=== PATIENT | female | born 1970 | race Caucasian/White ===

== ENCOUNTER 2019-04-29 21:21 | Inpatient (IN) | payer MEDICAID ==
[2019-04-29] MEDS: ACETAMINOPHEN 325 MG TAB PO (21:44)
[2019-04-29] MEDS: SODIUM CHLORIDE 0.9% 1L BAG IV* (21:45)
[2019-04-29] MEDS: AZTREONAM 1 GM/NS (PMX) 50 ML IVPB (21:52)
[2019-04-29 22:02] LABS: ABNORMAL IP MESSAGE 1; HEMATOCRIT 34.7 % (37.0-47.0); HEMOGLOBIN 10.9 g/dl (12.0-16.0); MEAN CORPUSCULAR HEMOGLOBIN 24.2 pg (29.0-33.0); MEAN CORPUSCULAR HGB CONC 31.4 g/dl (32.0-37.0); MEAN CORPUSCULAR VOLUME 76.9 fl (82.0-101.0); PLATELET COUNT 340 10^3/UL (140-415); RED BLOOD COUNT 4.51 10^6/ul (4.20-5.40); RED CELL DISTRIBUTION WIDTH 16.9 % (11.5-14.5)
[2019-04-29 22:02] LABS: WHITE BLOOD COUNT 23.3 10^3/ul (4.8-10.8)
[2019-04-29 22:05] LABS: ADD UMIC YES; UR ASCORBIC ACID NEGATIVE (NEGATIVE); UR BILIRUBIN (Dip) NEGATIVE (NEGATIVE); UR BLOOD (Dip) NEGATIVE (NEGATIVE); UR CLARITY CLEAR (CLEAR); UR COLOR YELLOW (YELLOW); UR GLUCOSE (Dip) NEGATIVE (NEGATIVE); UR KETONES (Dip) NEGATIVE (NEGATIVE); UR LEUKOCYTE ESTERASE (Dip) TRACE Leu/ul (NEGATIVE); UR NITRITE (Dip) NEGATIVE (NEGATIVE); UR RBC 2 /HPF (0-5); UR SPECIFIC GRAVITY (Dip) 1.013 (1.003-1.030); UR TOTAL PROTEIN (Dip) NEGATIVE (NEGATIVE); UR UROBILINOGEN (Dip) NEGATIVE (NEGATIVE); UR WBC 1 /HPF (0-5)
[2019-04-29 22:07] LABS: ADD MAN DIFF? YES; POSITIVE DIFF @See below
[2019-04-29] MEDS: VANCOMYCIN 1 GM (PMX) 250 ML IVPB (22:11)
[2019-04-29 22:21] LABS: INR 0.97
[2019-04-29 22:22] LABS: PARTIAL THROMBOPLASTIN TIME 27.1 Sec (23.0-35.0)
[2019-04-29 22:25] LABS: ALANINE AMINOTRANSFERASE 45 IU/L (13-69); ALBUMIN 4.7 g/dl (3.3-4.9); ALBUMIN/GLOBULIN RATIO 1.17; ALKALINE PHOSPHATASE 66 IU/L (42-121); ANION GAP 15 (5-13); ASPARTATE AMINO TRANSFERASE 41 IU/L (15-46); BILIRUBIN,INDIRECT 1.6 mg/dl (0-1.1); BILIRUBIN,TOTAL 1.6 mg/dl (0.2-1.3); BLOOD UREA NITROGEN 13 mg/dl (7-20); CARBON DIOXIDE 24 mmol/L (21-31); CHLORIDE 98 mmol/L (97-110); CREATININE 0.82 mg/dl (0.44-1.00); Estimated GFR > 60 mL/min (>60); GLUCOSE 197 mg/dl (70-220); LIPASE 65 U/L (23-300); POTASSIUM 3.6 mmol/L (3.5-5.1); SODIUM 137 mmol/L (135-144); TOTAL PROTEIN 8.7 g/dl (6.1-8.1)
[2019-04-29 22:37] LABS: TROPONIN-I < 0.012 ng/ml (0.000-0.120)
[2019-04-29 22:46] LABS: ANISOCYTOSIS 1+ (0-0); BAND NEUTROPHILS #M 2.7 10^3/ul (0.0-0.6); BAND NEUTROPHILS % (M) 12 % (0-4); EOSINOPHILS % (M) 1 % (0-7); HYPOCHROMASIA 1+ (0-0); LYMPHOCYTES #M 0.2 10^3/ul (0.8-2.9); LYMPHOCYTES % (M) 1 % (15-51); MICROCYTOSIS 1+ (0-0); MONOCYTES % (M) 9 % (0-11); PLATELET ESTIMATE NORMAL; POIKILOCYTOSIS 1+ (0-0); POLYCHROMASIA 1+ (0-0); SEG NEUT #M 18.6 10^3/ul (1.6-7.5); SEGMENTED NEUTROPHILS (M) % 77 % (39-77); SMUDGE%M 1 % (0-0)
[2019-04-30] MEDS ORDERED: DOCUSATE SODIUM 100 MG CAP PO
[2019-04-30] MEDS ORDERED: ACETAMINOPHEN 325 MG TAB PO
[2019-04-30] MEDS ORDERED: ONDANSETRON 4 MG INJ IV
[2019-04-30] MEDS ORDERED: morphine 2 MG INJ IV
[2019-04-30] MEDS ORDERED: BISACODYL (EC) 5 MG TAB PO
[2019-04-30] MEDS ORDERED: NACL 0.9% 3 ML SYG IV
[2019-04-30 00:06] LABS: LACTIC ACID 3.7 mmol/L (0.5-2.0)
[2019-04-30] MEDS ORDERED: VANCOMYCIN IV PER PHARMACY XX (01:00)
[2019-04-30] MEDS: MEROPENEM 1 GM/50ML(PMX) 50 ML IVPB ×3 (01:18→16:17)
[2019-04-30] MEDS: SOD CHLORIDE 0.9% 500 ML IV (01:19)
[2019-04-30 02:16] LABS: LACTIC ACID 2.3 mmol/L (0.5-2.0)
[2019-04-30] MEDS: SOD CHLORIDE 0.9% 250 ML IV (04:12)
[2019-04-30] MEDS: ACETAMINOPHEN 325 MG TAB PO ×2 (04:30→16:17)
[2019-04-30 05:58] LABS: ADD MAN DIFF? NO
[2019-04-30 06:05] LABS: ABNORMAL IP MESSAGE 1; BASOPHILS % 0.2 % (0.0-2.0); HEMATOCRIT 30.5 % (37.0-47.0); HEMOGLOBIN 9.2 g/dl (12.0-16.0); LYMPHOCYTES % 5.4 % (15.0-51.0); MEAN CORPUSCULAR HEMOGLOBIN 24.1 pg (29.0-33.0); MEAN CORPUSCULAR HGB CONC 30.2 g/dl (32.0-37.0); MEAN CORPUSCULAR VOLUME 79.8 fl (82.0-101.0); MEAN PLATELET VOLUME 10.1 fl (7.4-10.4); MONOCYTE # 1.7 10^3/ul (0.3-0.9); MONOCYTES % 9.6 % (0.0-11.0); NEUTROPHIL # 14.9 10^3/ul (1.6-7.5); NEUTROPHILS % 84.2 % (39.0-77.0); PLATELET COUNT 292 10^3/UL (140-415); RED BLOOD COUNT 3.82 10^6/ul (4.20-5.40); RED CELL DISTRIBUTION WIDTH 17.2 % (11.5-14.5)
[2019-04-30 06:05] LABS: WHITE BLOOD COUNT 17.7 10^3/ul (4.8-10.8)
[2019-04-30 06:10] LABS: POSITIVE DIFF @See below
[2019-04-30 06:30] LABS: ALANINE AMINOTRANSFERASE 34 IU/L (13-69); ALBUMIN 3.6 g/dl (3.3-4.9); ALBUMIN/GLOBULIN RATIO 1.16; ALKALINE PHOSPHATASE 41 IU/L (42-121); ANION GAP 8 (5-13); ASPARTATE AMINO TRANSFERASE 30 IU/L (15-46); BILIRUBIN,INDIRECT 1.4 mg/dl (0-1.1); BILIRUBIN,TOTAL 1.4 mg/dl (0.2-1.3); BLOOD UREA NITROGEN 10 mg/dl (7-20); CALCIUM 7.8 mg/dl (8.4-10.2); CARBON DIOXIDE 24 mmol/L (21-31); CHLORIDE 109 mmol/L (97-110); CHOL/HDL RATIO 2.8 RATIO; CHOLESTEROL 107 mg/dl (100-200); CREATININE 0.69 mg/dl (0.44-1.00); Estimated GFR > 60 mL/min (>60); GLUCOSE 130 mg/dl (70-220); HDL CHOLESTEROL 38 mg/dl (37-92); LDL CHOLESTEROL,CALCULATED 61 mg/dl; MAGNESIUM 1.8 mg/dl (1.7-2.5); POTASSIUM 4.1 mmol/L (3.5-5.1); SODIUM 141 mmol/L (135-144); TOTAL PROTEIN 6.7 g/dl (6.1-8.1); TRIGLYCERIDES 41 mg/dl (0-149)
[2019-04-30 07:46] LABS: HEMOGLOBIN A1C 6.1 % (0-5.9)
[2019-04-30] MEDS: RIVAROXABAN 15 MG TABLET PO ×2 (08:20→20:31)
[2019-04-30] MEDS: FERROUS SULFATE (EC) 325 MG TAB PO ×2 (08:20→20:31)
[2019-04-30] MEDS: VANCOMYCIN 1 GM 250 ML IVPB ×2 (10:12→22:36)
[2019-04-30] MEDS ORDERED: hydrALAzine 20 MG INJ IV (11:30)
[2019-04-30 12:17] LABS: CANCER ANTIGEN 125 8.8 U/ml (0.0-35.0)
[2019-04-30 12:17] LABS: CARCINOEMBRYONIC ANTIGEN 0.4 ng/ml (0.0-5.0)
[2019-04-30 12:51] LABS: PROCALCITONIN 3.39 ng/mL (0.00-0.10)
[2019-05-01] MEDS: MEROPENEM 1 GM/50ML(PMX) 50 ML IVPB ×3 (01:06→16:30)
[2019-05-01 05:31] LABS: ADD MAN DIFF? NO
[2019-05-01 05:34] LABS: BASOPHIL # 0.1 10^3/ul (0.0-0.1); BASOPHILS % 0.6 % (0.0-2.0); EOSINOPHILS # 0.1 10^3/ul (0.0-0.5); HEMATOCRIT 31.9 % (37.0-47.0); HEMOGLOBIN 9.7 g/dl (12.0-16.0); LYMPHOCYTES # 1.8 10^3/ul (0.8-2.9); LYMPHOCYTES % 18.8 % (15.0-51.0); MEAN CORPUSCULAR HEMOGLOBIN 24.1 pg (29.0-33.0); MEAN CORPUSCULAR HGB CONC 30.4 g/dl (32.0-37.0); MEAN CORPUSCULAR VOLUME 79.4 fl (82.0-101.0); MEAN PLATELET VOLUME 10.1 fl (7.4-10.4); MONOCYTE # 1.4 10^3/ul (0.3-0.9); MONOCYTES % 14.4 % (0.0-11.0); NEUTROPHILS % 64.6 % (39.0-77.0); PLATELET COUNT 264 10^3/UL (140-415); RED BLOOD COUNT 4.02 10^6/ul (4.20-5.40); RED CELL DISTRIBUTION WIDTH 17.2 % (11.5-14.5)
[2019-05-01 05:34] LABS: WHITE BLOOD COUNT 9.4 10^3/ul (4.8-10.8)
[2019-05-01 06:07] LABS: PHOSPHORUS 2.7 mg/dl (2.5-4.9)
[2019-05-01 06:07] LABS: MAGNESIUM 2.1 mg/dl (1.7-2.5)
[2019-05-01 06:16] LABS: ALANINE AMINOTRANSFERASE 38 IU/L (13-69); ALBUMIN 3.7 g/dl (3.3-4.9); ALBUMIN/GLOBULIN RATIO 1.15; ALKALINE PHOSPHATASE 47 IU/L (42-121); ANION GAP 7 (5-13); ASPARTATE AMINO TRANSFERASE 35 IU/L (15-46); BILIRUBIN,INDIRECT 0.9 mg/dl (0-1.1); BILIRUBIN,TOTAL 0.9 mg/dl (0.2-1.3); BLOOD UREA NITROGEN 9 mg/dl (7-20); CALCIUM 8.3 mg/dl (8.4-10.2); CARBON DIOXIDE 26 mmol/L (21-31); CHLORIDE 109 mmol/L (97-110); CREATININE 0.67 mg/dl (0.44-1.00); Estimated GFR > 60 mL/min (>60); GLUCOSE 123 mg/dl (70-220); POTASSIUM 3.7 mmol/L (3.5-5.1); SODIUM 142 mmol/L (135-144); TOTAL PROTEIN 6.9 g/dl (6.1-8.1)
[2019-05-01 06:23] LABS: IRON 25 ug/dl (35-150)
[2019-05-01 06:41] LABS: % IRON SATURATION 7 % SAT (22-52); TOTAL IRON BINDING CAPACITY 343 ug/dl (241-421)
[2019-05-01 06:58] LABS: FERRITIN 48.7 ng/ml (11.1-264.0)
[2019-05-01 07:57] LABS: ERYTHROCYTE SEDIMENTATION RATE 16 mm/Hr (0-30)
[2019-05-01] MEDS: FERROUS SULFATE (EC) 325 MG TAB PO ×2 (08:15→20:58)
[2019-05-01] MEDS: RIVAROXABAN 15 MG TABLET PO ×2 (08:15→20:58)
[2019-05-01] MEDS: VANCOMYCIN 1 GM 250 ML IVPB ×2 (10:07→22:08)
[2019-05-01 12:03] LABS: VANCOMYCIN,TROUGH 11.4 ug/ml (10.0-20.0)
[2019-05-02] MEDS: MEROPENEM 1 GM/50ML(PMX) 50 ML IVPB ×3 (01:15→17:00)
[2019-05-02 05:52] LABS: ADD MAN DIFF? NO
[2019-05-02 05:57] LABS: BASOPHILS % 0.6 % (0.0-2.0); EOSINOPHILS # 0.2 10^3/ul (0.0-0.5); EOSINOPHILS % 2.8 % (0.0-7.0); HEMATOCRIT 34.5 % (37.0-47.0); HEMOGLOBIN 10.2 g/dl (12.0-16.0); LYMPHOCYTES # 1.9 10^3/ul (0.8-2.9); LYMPHOCYTES % 28.1 % (15.0-51.0); MEAN CORPUSCULAR HEMOGLOBIN 24.1 pg (29.0-33.0); MEAN CORPUSCULAR HGB CONC 29.6 g/dl (32.0-37.0); MEAN CORPUSCULAR VOLUME 81.6 fl (82.0-101.0); MEAN PLATELET VOLUME 10.2 fl (7.4-10.4); MONOCYTES % 15.1 % (0.0-11.0); NEUTROPHIL # 3.6 10^3/ul (1.6-7.5); NEUTROPHILS % 52.2 % (39.0-77.0); PLATELET COUNT 274 10^3/UL (140-415); RED BLOOD COUNT 4.23 10^6/ul (4.20-5.40); RED CELL DISTRIBUTION WIDTH 17.6 % (11.5-14.5)
[2019-05-02 05:57] LABS: WHITE BLOOD COUNT 6.9 10^3/ul (4.8-10.8)
[2019-05-02 06:25] LABS: ALBUMIN/GLOBULIN RATIO 1.18; ANION GAP 9 (5-13); BILIRUBIN,TOTAL 0.7 mg/dl (0.2-1.3); Estimated GFR > 60 mL/min (>60)
[2019-05-02 06:37] LABS: ALANINE AMINOTRANSFERASE 38 IU/L (13-69); ALBUMIN 3.9 g/dl (3.3-4.9); ALKALINE PHOSPHATASE 47 IU/L (42-121); ASPARTATE AMINO TRANSFERASE 32 IU/L (15-46); BILIRUBIN,INDIRECT 0.7 mg/dl (0-1.1); BLOOD UREA NITROGEN 14 mg/dl (7-20); CALCIUM 8.5 mg/dl (8.4-10.2); CARBON DIOXIDE 28 mmol/L (21-31); CHLORIDE 105 mmol/L (97-110); GLUCOSE 124 mg/dl (70-220); POTASSIUM 3.7 mmol/L (3.5-5.1); SODIUM 142 mmol/L (135-144); TOTAL PROTEIN 7.2 g/dl (6.1-8.1)
[2019-05-02] MEDS: RIVAROXABAN 15 MG TABLET PO (08:14)
[2019-05-02] MEDS: FERROUS SULFATE (EC) 325 MG TAB PO (08:14)
[2019-05-02] MEDS: VANCOMYCIN 1 GM 250 ML IVPB (10:02)
== END 2019-05-02 17:09 | disposition home or self-care (01) | DRG 872 ==
LOC: 6WM 23:48 → E/R 21:21
DX: A41.9 Sepsis, unspecified organism (principal); N39.0 Urinary tract infection, site not specified; R65.20 Severe sepsis without septic shock; R19.00 Intra-abdominal and pelvic swelling, mass and lump, unspecified site; I10 Essential (primary) hypertension; Z86.711 Personal history of pulmonary embolism; D25.0 Submucous leiomyoma of uterus; R51 Headache; R60.9 Edema, unspecified; D53.9 Nutritional anemia, unspecified; N93.9 Abnormal uterine and vaginal bleeding, unspecified; B95.1 Streptococcus, group B, as the cause of diseases classified elsewhere
CPT/HCPCS: 36415; 71045; 72197; 74176; 76856; 80053; 80061; 80202; 81001; 82378; 82728; 83036; 83540; 83605; 83690; 83735; 84100; 84145; 84443; 84484; 85025; 85610; 85651; 85730; 86140; 86304; 87040-91; 87086; 87400; 93005; 93306; 93970; 96374; 96375; 99285-25